=== PATIENT | male | born 1980 | race Caucasian/White ===

== ENCOUNTER 2016-12-30 13:30 | Emergency (ER) | payer OTHER ==
[~2016-12-30] VITALS: Ht 190.5 cm; Wt 149.7 kg
[2016-12-30 13:46] VITALS: BP 157/100
[2016-12-30] MEDS ORDERED: IBUPROFEN 800 MG TAB PO ONE (14:45)
== END 2016-12-30 15:20 | disposition home or self-care (01) ==
LOC: EDBD 13:30 → ER 13:30
DX: S83.91XA Sprain of unspecified site of right knee, initial encounter (principal); X50.1XXA Overexertion from prolonged static or awkward postures, initial encounter; Y93.89 Activity, other specified; Y99.8 Other external cause status; Y92.89 Other specified places as the place of occurrence of the external cause
CPT/HCPCS: 73562